=== PATIENT | female | born 1965 | race Caucasian/White ===

== ENCOUNTER 2017-01-05 17:42 | Emergency (ER) | payer BC ==
[2017-01-05] MEDS ORDERED: Tetan/Diph/Pertus SYR(Tdap)* 0.5 ML SYR(BOOSTRIX) use SYR IM ONE (19:18)
[2017-01-05] MEDS ORDERED: Lidocaine 1%* 5 ML VIAL ONE (19:46)
[2017-01-05] MEDS ORDERED: Lidocaine 1%* 5 ML VIAL INJ ONE (19:55)
[2017-01-05 20:39] VITALS: BP 123/58
--- NOTE | 2017-01-15 22:10 | ED ---
Lukasz Whitley Jason, scribed for Ilia Niño MD on 01/05/17 at 1918 . Laceration/Wound HPI - HPI Summary HPI Summary: This patient is a 51 year old F presenting to [facility] with a chief complaint of RLE Laceration since 1800 today. The patient states that she stepped on a food expeditor blade with her right foot and gained a laceration on her right heel. The patient rates the pain 3/10 in severity. Symptoms aggravated by touch. Symptoms alleviated by nothing. - History of Current Complaint Stated Complaint: RT FOOT LAC Time Seen by Provider: 01/05/17 19:14 Hx Obtained From: Patient Hx Last Menstrual Period: 1 week ago/IUD Mechanism of Injury: Sharp/Blunt Trauma Onset/Duration: Sudden Onset, Lasting Hours - Soince 1800 today, Still Present Aggravating: Nothing Alleviating: Nothing Current Severity: Moderate Pain Intensity: 3 Pain Scale Used: 0-10 Numeric - Allergy/Home Medications Allergies/Adverse Reactions: Allergies Allergy/AdvReac Type Severity Reaction Status Date / Time No Known Allergies Allergy Verified 05/08/14 16:29 PMH/Surg Hx/FS Hx/Imm Hx Previously Healthy: No Endocrine/Hematology History: Denies: Hx Diabetes, Hx Thyroid Disease Cardiovascular History: Reports: Hx Deep Vein Thrombosis - subclavian,thoric outlet syndrome Denies: Hx Hypertension Respiratory History: Reports: Hx Asthma Denies: Hx Chronic Obstructive Pulmonary Disease (COPD) GI History: Reports: Other GI Disorders - see hx above Denies: Hx Ulcer History: Reports: Hx Kidney Stones - 1998 Musculoskeletal History: Denies: Hx Rheumatoid Arthritis, Hx Osteoporosis Psychiatric History: Reports: Hx Depression - Cancer History Hx Chemotherapy: No Hx Radiation Therapy: No - Surgical History Surgery Procedure, Year, and Place: BILAT RIB RESECTION AND ScALENECTOMY, APPENDECTOMY, csection, rhinoplasty 1994 - Immunization History Date of Tetanus Vaccine: unknown Infectious Disease History: No Infectious Disease History: Denies: Hx Clostridium Difficile, Hx Hepatitis, Hx Human Immunodeficiency Virus (HIV), Hx of Known/Suspected MRSA, Hx Shingles, Hx Tuberculosis, Hx Known/ Suspected VRE, Hx Known/Suspected VRSA, History Other Infectious Disease, Traveled Outside the [place] in Last 30 Days - Family History Known Family History: Positive: Hypertension - mother Negative: Blood Disorder - Social History Occupation: Unemployed Lives: With Family Alcohol Use: Daily Alcohol Amount: 1 wine/day Substance Use Type: Reports: None Smoking Status (MU): Former Smoker Review of Systems Negative: Fever Positive: Other - RLE Heel Laceration All Other Systems Reviewed And Are Negative: Yes Physical Exam - Summary Physical Exam Summary: Appearance: Well-appearing, Well-nourished Skin: Warm, Dry, No rash Eyes: Normal, PERRL, EOMI, sclera anicteric ENT: Normal Neck: Supple, nontender Respiratory: Clear to auscultation Cardiovascular: S1, S2, no murmur, no rub, no gallop Abdomen: Soft, nontender, no organomegaly Bowel sounds: Present Musculoskeletal: Normal, Strength/ROM Intact, no edema, pulses symmetrical. Isolated right foot laceration near the heel 5 CM in length and curvilinear. Sensation is normal, Full dorsiflexion and plantiflection of the foot. Achilles tendon is intact. Neurological: Normal, A&Ox3, cranial nerves 2-12 wnl, follows commands, gait not tested, sensation intact to pin and light touch Psychiatric: affect normal, behavior appropriate, dressed appropriately, judgment intact Triage Information Reviewed: Yes Vital Signs On Initial Exam: Initial Vitals Temp Pulse Resp BP Pulse Ox 97.8 F 66 18 133/65 97 01/05/17 17:45 01/05/17 17:45 01/05/17 17:45 01/05/17 17:45 01/05/17 17:45 Vital Signs Reviewed: Yes - Kunal Coma Scale Coma Scale Total: 15 Procedures - Laceration/Wound Repair 1 Location: lower extremity - RLE Heel Description: Linear - [place] Anesthesia: 1.0%, Lido - Twice Length, Depth and Shape: 5 cm Betadine Prep?: Yes Irrigated w/ Saline (ccs): 60 Laceration/Wound Explored: clean Closure: Single Layer Debridement: none Suture Type: Prolene - 3-0 Surgipro sutures Number of Sutures: 4 Layer Closure?: No Sterile Dressing Applied?: Yes Diagnostics - Vital Signs Vital Signs Temp Pulse Resp BP Pulse Ox 01/05/17 17:45 97.8 F 66 18 133/65 97 - Laboratory Lab Statement: Any lab studies that have been ordered have been reviewed, and results considered in the medical decision making process. Re-Evaluation - Re-Evaluation First Eval Re-Evaluation Time: 19:41 Change: Unchanged - Pt agreed to receive regional anaesthetic block Laceration Repair Course/Dx - Course Course Of Treatment: This patient is a 51 year old F presenting to [facility] with a chief complaint of RLE Laceration since 1800 today. The patient states that she stepped on a food expeditor blade with her right foot and gained a laceration on her right heel. The patient rates the pain 3/10 in severity. Symptoms aggravated by touch. Symptoms alleviated by nothing. Assessment/Plan: In the ED course the patient was given regional lidocaine on the posterior tibial nerve and the superficial perineal nerve, and a tetanus/ reduced diphtheria/acell pertussis injection. Patient will be discharged with a dx prescription laceration of the right heel and follow up from PCP. The patient is agreeable with this plan. - Clinical Impression Provider Diagnoses: Laceration of sole of foot During the Visit The Following Alert/Code Occurred: Trauma - laceration foot Discharge - Discharge Plan Condition: Good Disposition: HOME Patient Education Materials: Care For Your Stitches (ED), Laceration (ED) Referrals: Miguel Poole NP [Primary Care Provider] - Additional Instructions: ad yoon The documentation as recorded by the Lukasz jenkins Jason accurately reflects the service I personally performed and the decisions made by me, Ilia Niño MD.
== END 2017-01-05 20:39 | disposition home or self-care (01) ==
LOC: ED 17:42
DX: S91.311A Laceration without foreign body, right foot, initial encounter (principal); W26.8XXA Contact with other sharp object(s), not elsewhere classified, initial encounter; Y92.9 Unspecified place or not applicable; Z86.718 Personal history of other venous thrombosis and embolism; J45.909 Unspecified asthma, uncomplicated; F32.9 Major depressive disorder, single episode, unspecified; Z87.891 Personal history of nicotine dependence
CPT/HCPCS: 90471; 90715; 99282

== ENCOUNTER 2017-01-23 09:37 | Emergency (ER) | payer BC ==
[2017-01-23 10:11] VITALS: BP 104/55
--- NOTE | 2017-01-23 11:45 | RAD ---
INDICATION: Right calf pain. COMPARISON: There are no prior studies available for comparison. TECHNIQUE: Multiple real-time, color flow and Doppler tracings of the right lower extremity were obtained. FINDINGS: The common femoral, femoral, profunda femoral and popliteal veins all demonstrate normal compressibility, augmentation with compression and phasic response with respiration. The posterior tibial and peroneal veins demonstrate normal compressibility and augmentation with compression. There is a Buitrago's cyst measuring 5.4 x 2.0 x 3.3 cm. IMPRESSION: 1. NO EVIDENCE FOR DEEP VENOUS THROMBOSIS. 2. BUITRAGO'S CYST.
--- NOTE | 2017-01-23 11:52 | UC ---
Cortes Whitley Benjamin, scribed for Leo Levy MD on 01/23/17 at 1034 . Lower Extremity/Ankle HPI - HPI Summary HPI Summary: 51yo female c/o right calf pain since last night. Pt hasw hx of blot clots in her arms from thoracic outlet syndrome. Pt describesthe pain is throbbing pain coming from deep inside her calf, and denies any pain/symptoms in her thigh or foot. Right calf is not swollen. Pain gets worse with movement. Pt prior hx of blood clots in her leg before. Denies SOB. FHx of HTN, CAD, and COPD. NKDA. - History of Current Complaint Chief Complaint: UCLowerExtremity Stated Complaint: RIGHT LEG PAIN Time Seen by Provider: 01/23/17 10:25 Hx Obtained From: Patient Hx Last Menstrual Period: 01/18/17 Onset/Duration: Sudden Onset, Lasting Days - 1 day, Still Present Severity Initially: Moderate Severity Currently: Moderate Aggravating Factor(s): Standing, Other - movement Alleviating Factor(s): Rest Able to Bear Weight: Yes - Allergies/Home Medications Allergies/Adverse Reactions: Allergies Allergy/AdvReac Type Severity Reaction Status Date / Time No Known Allergies Allergy Verified 01/23/17 10:02 PMH/Surg Hx/FS Hx/Imm Hx - Additional Past Medical History Additional PMH: thoracic outlet syndrome, - Surgical History Surgical History: Yes Surgery Procedure, Year, and Place: BILAT RIB RESECTION AND ScALENECTOMY, APPENDECTOMY, csection, rhinoplasty 1994 - Family History Known Family History: Positive: Cardiac Disease, Hypertension - mother, Respiratory Disease - COPD Negative: Blood Disorder - Social History Occupation: Employed Full-time Alcohol Use: Daily Alcohol Amount: 1 wine/day Substance Use Type: None Smoking Status (MU): Former Smoker - Immunization History Most Recent Tetanus Shot: within the past year Review of Systems Constitutional: Negative Skin: Negative Eyes: Negative ENT: Negative Respiratory: Negative Cardiovascular: Negative Gastrointestinal: Negative Genitourinary: Negative Motor: Negative Neurovascular: Negative Musculoskeletal: Calf Tenderness - right calf Neurological: Negative Psychological: Negative All Other Systems Reviewed And Are Negative: Yes Physical Exam Triage Information Reviewed: Yes Appearance: Well-Appearing, No Pain Distress Vital Signs: Initial Vital Signs Temp 99.5 F 01/23/17 10:04 Pulse 86 01/23/17 10:04 Resp 18 01/23/17 10:04 BP 104/55 01/23/17 10:04 Pulse Ox 99 01/23/17 10:04 Vital Signs Reviewed: Yes ENT: Positive: Normal ENT inspection Neck: Positive: Supple Respiratory: Positive: Chest non-tender, Lungs clear Cardiovascular: Positive: RRR, No Murmur Musculoskeletal: Positive: ROM Intact, No Edema, Other: - right calf without redness, no fluctuance. Neurological: Positive: Alert, Muscle Tone Normal Psychological: Positive: Normal Response To Family Skin Exam: Normal Diagnostics - Laboratory Diagnostic Studies Completed/Ordered: VL LOWER EXT VEINS RIGHT: IMPRESSION: 1. NO EVIDENCE FOR DEEP VENOUS THROMBOSIS. 2. CASTELLANOS'S CYST. Lower Extremity Course/Dx - Course Course Of Treatment: Reviewed pts medication and allergy lists. Blood pressure noted. No DVT on sono,but she has castellanos cyst. refer to ortho - Differential Dx/Diagnosis Provider Diagnoses: bakers cyst right leg Discharge - Discharge Plan Condition: Good Disposition: HOME Patient Education Materials: Bakers Cyst (ED) Referrals: Meggan Small NP [Primary Care Provider] - 2 Days Bandar Telles MD [Medical Doctor] - 2 Days The documentation as recorded by the Cortes jenkins Benjamin accurately reflects the service I personally performed and the decisions made by , Leo Levy MD.
== END 2017-01-23 11:55 | disposition home or self-care (01) ==
LOC: UCEAST 09:37
DX: M71.21 Synovial cyst of popliteal space [Baker], right knee (principal); Z72.89 Other problems related to lifestyle; Z72.0 Tobacco use
CPT/HCPCS: 99211; G0463